=== PATIENT | female | born 1965 | race Caucasian/White ===

== ENCOUNTER 2016-08-27 15:34 | Emergency (ER) | payer MEDICAID ==
[~2016-08-27] VITALS: Ht 167.6 cm; Wt 90.7 kg
[2016-08-27 16:19] LABS: BASOPHILS % (AUTO) 0.3 % (0.0-2.0); DIFF TOTAL % 100 %; EOSINOPHILS # (AUTO) 0.2 /CMM (0.0-0.7); EOSINOPHILS % (AUTO) 2.3 % (0.0-6.0); HEMATOCRIT 44 % (33-45); HEMOGLOBIN 14.1 g/dL (11.5-14.8); LYMPHOCYTES # (AUTO) 2.3 /CMM (0.8-4.8); LYMPHOCYTES % (AUTO) 25.6 % (20.0-44.0); MEAN CORPUSCULAR HEMOGLOBIN 25 PG (26.0-33.0); MEAN CORPUSCULAR HGB CONC 32 g/dl (31.0-36.0); MEAN CORPUSCULAR VOLUME 77 fL (82-100); MONOCYTES # (AUTO) 0.3 /CMM (0.1-1.30); MONOCYTES % (AUTO) 3.6 % (2.0-12.0); NEUTROPHILS # (AUTO) 6.4 /CMM (1.8-8.9); NEUTROPHILS % (AUTO) 68.2 % (43.0-81.0); PLATELET COUNT (AUTO) 255 /CMM (150-450); RED BLOOD CELL COUNT(AUTO) 5.63 MIL/uL (4.0-5.2); WHITE BLOOD COUNT (AUTO) 9.2 K/uL (4.3-11.0)
[2016-08-27 16:33] LABS: ALBUMIN 3.6 g/dL (3.4-5.0); BILIRUBIN,DIRECT 0.1 mg/dL (0.0-0.2); BILIRUBIN,TOTAL 0.4 mg/dL (0.2-1.0); CALCIUM, SERUM 8.9 mg/dL (8.5-10.1); INDIRECT BILIRUBIN 0.3 mg/dL (0.0-1.1); POTASSIUM 3.6 mmol/L (3.5-5.1); TOTAL PROTEIN, SERUM 8.1 g/dL (6.4-8.2)
[2016-08-27] MEDS ORDERED: CT SWABBABLE VALVE TRANS SET 1 EA INFUS.SET MC ONE (16:49)
[2016-08-27] MEDS ORDERED: IV NS 0.9% 250 ML IV ONE (16:50)
[2016-08-27] MEDS ORDERED: IOHEXOL-300 100 ML VIAL IV ONE (16:50)
[2016-08-27 16:53] LABS: PREGNANCY TEST URINE QUAL NEGATIVE (NEGATIVE)
[2016-08-27 16:54] LABS: ADD UA MICROSCOPIC NO; KETONES,URINE Negative (NEGATIVE); LEUKOCYTE ESTERASE ,URINE Negative (NEGATIVE); PH,URINE 5.5 (5.0-8.0)
[2016-08-27] MEDS ORDERED: KETOROLAC TROMETHAMINE INJ 30 MG/ML VIAL IV ONE (18:30)
[2016-08-27] MEDS ORDERED: KETOROLAC TROMETHAMINE INJ 30 MG/ML VIAL ONE (18:34)
[2016-08-27 18:44] VITALS: BP 138/89
== END 2016-08-27 18:44 | disposition home or self-care (01) ==
LOC: ER 15:37
DX: R10.31 Right lower quadrant pain (principal)
CPT/HCPCS: 36415; 74160; 80048; 80076; 81001; 84703; 85025; 96374; 99285; A4606; J1885; J7050 ×2; Q9967 ×2; Z7610; 81000-TC

== ENCOUNTER 2016-09-05 03:56 | Emergency (ER) | payer MEDICAID ==
[~2016-09-05] VITALS: Ht 160 cm; Wt 113.9 kg
[2016-09-05] MEDS ORDERED: KETOROLAC TROMETHAMINE INJ 60 MG/2 ML VIAL IM ONE ×3 (04:13→04:30)
[2016-09-05] MEDS ORDERED: CARISOPRODOL 350 MG TABLET ONE (04:16)
[2016-09-05] MEDS ORDERED: DEXAMETHASONE SOD PHOSPHATE 4 MG/ML VIAL IM ONE (04:30)
[2016-09-05] MEDS ORDERED: CARISOPRODOL 350 MG TABLET PO ONE (04:30)
[2016-09-05] MEDS ORDERED: DEXAMETHASONE SOD PHOSPHATE 10 MG/ML VIAL ONE (04:44)
[2016-09-05] MEDS ORDERED: CLONIDINE HCL 0.1 MG TABLET ONE (05:10)
[2016-09-05] MEDS ORDERED: CLONIDINE HCL 0.1 MG TABLET PO ONE (05:30)
[2016-09-05 06:07] VITALS: BP 205/113
== END 2016-09-05 06:09 | disposition left against medical advice (07) ==
LOC: ER 04:02
DX: R10.31 Right lower quadrant pain (principal); I10 Essential (primary) hypertension; M54.41 Lumbago with sciatica, right side
CPT/HCPCS: 96372 ×2; 99284; A4606; J1100; J1885; Z7610

== ENCOUNTER 2022-11-07 16:15 | Emergency (ER) | payer MEDICAID ==
[~2022-11-07] VITALS: Ht 162.6 cm; Wt 115.7 kg
[2022-11-07] MEDS ORDERED: HYDROCODONE/APAP 5/325MG TABLET ONE (17:22)
[2022-11-07] MEDS ORDERED: TDAP [DIPH/PERTUSSIS/TET] 0.5 ML VIAL IM ONE ×2 (17:22→17:30)
[2022-11-07] MEDS ORDERED: HYDROCODONE/APAP 5/325MG TABLET PO ONE (17:30)
[2022-11-07] MEDS ORDERED: KETOROLAC TROMETHAMINE INJ 60 MG/2 ML VIAL IM ONE (19:00)
[2022-11-07] MEDS ORDERED: KETOROLAC TROMETHAMINE 15 MG/ML VIAL ONE (19:03)
[2022-11-07] MEDS ORDERED: TRAM50TA2 PO (20:27)
--- NOTE | 2022-11-07 20:43 | NUR ---
Patient discharged to home in stable condition. Written and verbal after care instructions given. Patient verbalizes understanding of instruction. Pt ambulatory with a steady gait
[2022-11-07 20:46] VITALS: BP 156/89
[2022-11-08] MEDS ORDERED: HYDR-3980 PO (11:20)
== END 2022-11-07 20:54 | disposition home or self-care (01) ==
LOC: ER 16:20
DX: S01.81XA Laceration without foreign body of other part of head, initial encounter (principal); S01.111A Laceration without foreign body of right eyelid and periocular area, initial encounter; S81.002A Unspecified open wound, left knee, initial encounter; Z79.899 Other long term (current) drug therapy; W22.8XXA Striking against or struck by other objects, initial encounter; Y93.89 Activity, other specified; Y92.89 Other specified places as the place of occurrence of the external cause; Y99.8 Other external cause status
CPT/HCPCS: 99285; 70450; 12013; 96372; 90471; 90715; 73564; A6403; J1885

== ENCOUNTER 2025-03-26 20:52 | Emergency (ER) | payer MEDICAID ==
[~2025-03-26] VITALS: Ht 160 cm; Wt 79.4 kg
[~2025-03-26 20:52] MED LIST: HYDR-3980 PO
[2025-03-26 21:24] LABS: PLATELET COUNT (AUTO) 214 K/uL (150-450); RED BLOOD CELL COUNT(AUTO) 4.86 MIL/uL (4.0-5.2); RED CELL DISTRIBUTION WIDTH 15.9 % (11.5-15.0); WHITE BLOOD COUNT (AUTO) 9.0 K/uL (4.3-11.0)
[2025-03-26] MEDS ORDERED: FENTANYL PF 100MCG/2ML AMPUL ONE (21:24)
[2025-03-26] MEDS ORDERED: ONDANSETRON HCL/PF 4 MG/2 ML VIAL ONE (21:24)
[2025-03-26] MEDS: FENTANYL PF 100MCG/2ML AMPUL IV ONE (21:30)
[2025-03-26 21:31] LABS: CALCIUM, SERUM 8.5 mg/dL (8.5-10.1); CREATININE 0.4 mg/dL (0.6-1.3); SODIUM SERUM 138.0 mmol/L (136-145); UREA NITROGEN, BLOOD 16.0 mg/dL (7-18)
[2025-03-26] MEDS: ONDANSETRON HCL/PF 4 MG/2 ML VIAL IV ONE (21:31)
[2025-03-26 21:38] LABS: INR 0.96 (0.91-1.10)
[2025-03-26] MEDS ORDERED: METO50TA16 PO (22:01)
[2025-03-26] MEDS ORDERED: AMLO-212 PO (22:01)
[2025-03-26] MEDS ORDERED: CITA20TA19 PO (22:01)
[2025-03-26] MEDS ORDERED: FURO20TA4 PO (22:01)
[2025-03-26] MEDS ORDERED: ASPI-1169 PO (22:01)
[2025-03-26] MEDS ORDERED: HYDROMORPHONE 1 MG/1 ML DISP.SYRIN ONE (23:00)
[2025-03-26] MEDS: HYDROMORPHONE 1 MG/1 ML DISP.SYRIN IV ONE (23:08)
[2025-03-27 00:52] VITALS: BP 160/100; TEMP 98.5; O2SAT 95
== END 2025-03-27 01:00 | disposition home or self-care (01) ==
LOC: ER 20:54
DX: G89.29 Other chronic pain (principal); M25.551 Pain in right hip; R07.9 Chest pain, unspecified; Z79.899 Other long term (current) drug therapy; Z96.643 Presence of artificial hip joint, bilateral; Z60.2 Problems related to living alone
CPT/HCPCS: 99285; 96374; 72192; 96375; 71045; 93005; 85025; 80048; 36415; 85730; J3010; J2405; J1171